=== PATIENT | female | born 1970 | race Caucasian/White ===

== ENCOUNTER → 2017-06-13 | Outpatient (CLI) | payer SELFPAY ==
[~2017-06-13] MED LIST: NS 100 ML IV 100 ML IV ONE
--- NOTE | 2017-06-13 13:21 | CT ---
HISTORY: Bilateral flank pain for months Study: CT abdomen and pelvis with contrast Comparison: None Technique: Multiple axial images of the abdomen and pelvis were obtained from the lung bases to the pubic symphy sis after/ without/ both prior to and after the administration of IV contrast. Findings: Minimal atelectasis and/or scarring are seen within the visualized lungs. The liver is enlarged. Diff use decreased attenuation throughout the liver suggests fatty infiltration. Correlate clinically as o ther causes of hepatic disease may produce a similar appearance. The spleen, pancreas, adrenals, and left kidney are unremarkable in appearance. A mildly dilated right extrarenal pelvis is noted. Stool and gas are seen throughout the colon to the level of the rectum. The urinary bladder is unremarkable . By history the appendix and uterus have been surgically removed Degenerative changes of the visuali zed spine are noted. IMPRESSION: Hepatomegaly. Hepatic steatosis. Appendectomy. Hysterectomy. Other findings as noted above. Reported By:
== END | disposition home or self-care (01) | DRG 695 ==
LOC: RAD 09:40
PROVIDERS: ATTEND Internal Medicine
DX: R31.9 Hematuria, unspecified (principal); K83.1 Obstruction of bile duct; R16.0 Hepatomegaly, not elsewhere classified
CPT/HCPCS: 74177; A4222

== ENCOUNTER → 2017-06-28 | Outpatient (CLI) | payer SELFPAY ==
--- NOTE | 2017-06-28 13:24 | RAD ---
History: Right hand pain Study: Three views of the right hand including PA oblique and lateral projections Comparison: None Findings: There is no acute fracture or dislocation. There is mild deformity of the distal 5th metaca rpal suggesting old healed fracture. No significant osteophyte formation is demonstrated. There is no marginal erosion. Impression: No acute disease Reported By:
--- NOTE | 2017-06-28 14:01 | RAD ---
HISTORY: Back pain Study: Three views of the lumbar spine Comparison: None Findings: Images demonstrate 5 [id number] lumbar vertebral bodies. The lumbar vertebral body heights are r elatively maintained. No evidence of significant subluxation is identified. Degenerate facet changes are seen within the mid to lower lumbar spine. Intervertebral disc space narrowing is noted at L4/L5. Minimal multilevel osteophytosis is also noted. IMPRESSION: 1. Degenerative changes as noted above. Reported By:
== END | disposition home or self-care (01) | DRG 556 ==
LOC: RAD 11:10
PROVIDERS: ATTEND Internal Medicine
DX: M79.641 Pain in right hand (principal); M51.36 Other intervertebral disc degeneration, lumbar region
CPT/HCPCS: 72100; 73130

== ENCOUNTER 2017-07-04 09:46 | Emergency (ER) | payer SELFPAY ==
[2017-07-04 09:53] VITALS: BP 140/91; BMI 35.4
[2017-07-04] MEDS ORDERED: TORADOL 60 MG VIAL IM ONE (10:08)
--- NOTE | 2017-07-04 10:08 | DR.FBACK ---
HPI - Time Seen Time seen: 10:00 - PCP Primary Care Physician: heena - Complaint Chief Complaint Doctor Comments: Patient presents with complaint of low back pain that increased in severity on last night s/p work clearing off shelving. She was diagnosed with DJD of the lumbar spine on . Patient reports that toradol and tramadol gave her some relief. 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 the stated last time she took toradol and tramadol and it finialy got better - Source History Provided: Patient - Mode of Arrival Mode of Arrival: Wheelchair - Timing Onset of Chief Complaint: 07/03/17 PMH - PMH Past Medical History: Yes Past Medical History: Arthritis, Dyslipidemia Past Surgical History: Yes Surgical History: Appendectomy, Hysterectomy, Ortho Surgery - Family History History of Family Medical Conditions: No - Social History Type of Tobacco Use: Smokeless How many years tobacco product used: 20 Does any household member use tobacco: Yes Alcohol Use: None Do you use any recreational Drugs:: Yes (thc) Lives With: Family Lives Where: Home - infectious screening In the last 2 months have you had wt loss of >10#?: NO Have you had fever, night sweats or hemotysis?: No Have you traveled outside the country in the last 6 months?: No Isolation: Standard ROS - Review of Systems Eyes: No Symptoms Reported ENTM: No Symptoms Reported Respiratoy: No Symptoms Reported Cardiovascular: No Symptoms Reported Gastrointestinal/Abdominal: No Symptoms Reported Genitourinary: No Symptoms Reported Neurological: No Symptoms Reported Musculoskeletal: No Symptoms Reported Integumentary: No Symptoms Reported Hematologic/Lymphatic: No Symptoms Reported Endocrine: No Symptoms Reported Psychiatric: No Symptoms Reported All Other Systems: Reviewed and Negative PE - Vitals Vital Signs: Temp Pulse Resp BP Pulse Ox 07/04/17 09:48 96.2 F L 84 18 140/91 98 - General Limitations: Language Barrier General Appearance: In No Apparent Distress - Head Head Exam: Normal Inspection, Atraumatic - Eyes Eye exam: Normal Appearance, PERRL, EOMI - ENT ENT Exam: Normal Exam - Chest Chest Inspection: Normal Inspection, Symmetric Chest Wall Rise - Respiratory Respiratory Exam: Normal Lung Sounds Bilat Respiratory Exam: Bilateral Clear to Auscultation - Cardiovascular Cardiovascular Exam: Regular Rate, Normal Rhythm - Abdominal Exam Abdominal Exam: Normal Inspection Abdominal Tenderness: negative: RUQ, RLQ, LUQ, LLQ, Epigastrium, Suprapubic, Diffuse, Mild, Moderate, Severe, Other - Genitourinary External Exam: Female: Deferred : Speculum Exam (Female): Deferred : Bimanual Exam (female): Deferred - Extremities Extremities Exam: Normal Inspection, Full ROM - Back Back Exam: Normal Inspection, Tenderness (level of T5-6/S1) - Neurological Neurological Exam: Alert, Oriented X3, CN II-XII Intact - Psychiatric Psychiatric Exam: Normal Affect - Skin Skin Exam: Warm, Dry - Diagnosis Discharge Problem: Osteoarthritis of lumbar spine Qualifiers: Spinal osteoarthritis complication: without myelopathy or radiculopathy Qualified Code(s): M47.816 - Spondylosis without myelopathy or radiculopathy, lumbar region - Discharge Plan Condition: Stable - Follow ups/Referrals Follow ups/Referrals: ZAHIDA MOSELEY [Primary Care Provider] - 3 days - Instructions
[2017-07-04] MEDS ORDERED: TORADOL 60 MG VIAL ONE (10:11)
== END 2017-07-04 10:35 | disposition home or self-care (01) ==
LOC: ER 09:54
DX: M47.816 Spondylosis without myelopathy or radiculopathy, lumbar region (principal)
CPT/HCPCS: 96372; 99282; J1885

== ENCOUNTER 2017-12-31 12:48 | Observation (INO) ==
[2017-12-31] MEDS ORDERED: LEVAQUIN PREMIX IV 750 MG 750 MG/150 ML BAG IV ONE (13:02)
[2017-12-31] MEDS ORDERED: NS 1000 ML 1,000 ML ONE (13:49)
[2017-12-31] MEDS: NS 1000 ML 1,000 ML IV SCH (14:03)
[2017-12-31] MEDS: DEMEROL INJ IVP PRN ×2 (14:41→21:10)
[2017-12-31 15:03] LABS: ALANINE AMINOTRANSFERASE 25 Units/L (12-78); ALBUMIN 3.8 g/dL (3.4-5.0); ALKALINE PHOSPHATASE 76 Units/L (46-116); ASPARTATE AMINO TRANSFERASE 14 Units/L (15-37); BLOOD UREA NITROGEN 7 mg/dL (7-18); CALCIUM 8.3 mg/dL (8.5-10.1); CARBON DIOXIDE 31.7 mmol/L (21-32); CHLORIDE 105 mmol/L (98-107); CREATININE 0.74 mg/dL (0.55-1.02); SODIUM 144 mmol/L (136-145); TOTAL PROTEIN 7.4 g/dL (6.4-8.2); eGFR NON BLACK RACES > 60 (>60)
[2017-12-31] MEDS: SOLU-Medrol 125 MG VIAL IVP SCH ×2 (15:06→21:09)
[2017-12-31 15:08] LABS: BASOPHILS % (AUTO) 0.4 % (0.2-1.0); EOSINOPHILS # (AUTO) 0.1 x10^3/uL (0.0-0.2); EOSINOPHILS % (AUTO) 1.5 % (0.9-2.9); LYMPHOCYTES % (AUTO) 33.7 % (21.0-51.0); MEAN CORPUSCULAR HEMOGLOBIN 29.7 pg (27.0-34.0); MEAN CORPUSCULAR HGB CONC 34.2 g/dL (33.0-35.0); MEAN CORPUSCULAR VOLUME 86.8 fL (80.0-100.0); MEAN PLATELET VOLUME 8.7 fL (7.4-11.0); MONOCYTES # (AUTO) 0.4 x10^3/uL (0.3-0.8); MONOCYTES % (AUTO) 4.8 % (0.0-13.0); NEUTROPHILS # (AUTO) 5.2 x10^3/uL (2.2-4.8); NEUTROPHILS % (AUTO) 59.6 % (42.0-75.0); PLATELET COUNT 215 X10^3/uL (150.0-450.0); RED BLOOD COUNT 5.06 X10^6/uL (3.5-5.4); RED CELL DISTRIBUTION WIDTH 14.3 % (11.6-16.5); WHITE BLOOD COUNT 8.8 X10^3/uL (3.6-10.0)
--- NOTE | 2017-12-31 15:58 | RAD ---
Exam: Chest two views History: 47-year-old female with history of right buttock abscess Comparison: Previous chest radiograph from 10/03/2017 Findings: Heart size and pulmonary vasculature are normal. Lungs are clear with no infiltrate or significant effusion on either side. Bony thorax is unremarkable as well. Impression: No acute cardiopulmonary abnormality is seen on this exam. Reported By:
[2017-12-31 16:46] VITALS: BMI 38.2
--- NOTE | 2017-12-31 17:15 | DR.H&P ---
H&P - History & Physical for Day of: H&P Date: 12/31/17 - Chief Complaint Chief Complaint: COUGH, BRONCHITIS, RIGHT HIP PAIN, "KNOT" TO RIGHT HIP - History of Present Illness History of Present Illness: 47 WF DIRECT ADMIT FROM DR MCWILLIAMS OFFICE AFTER PRESENTING FOR FOLLOW UP ON BRONCHITIS, PT RECIVED ROCEPHIN 1GM IM ONE WEEK AGO AND HAS CO CONTINUES TO FEEL BAD, COUGH AND CONGESTION, PT CO INTRACTABLE RIGHT HIP PAIN RADIATES DOWN RIGHT LEG AND "KNOT" WHERE SHE HAD ROCEPHIN INJECTION. PT HAS PMH OF LSPINE DDD AND STATES PAIN IN LOWER BACK AND HIP HAS BEEN WORSE WHILE WORKING. PT DENIES FEVER, REDNESS OR DRAINING FROM INJECTION SITE. PT IS ON WALKER, STATES SHE CANNOT BEAR WEIGHT DUE TO PAIN - Past Medical History Past Medical History: Hypertension, Dyslipidemia, Arthritis - Past Surgical History Surgical History: Appendectomy, Cholecystectomy, Hysterectomy, Ortho Surgery - Family History Family Medical History: Diabetes Mellitus, Cancer, [place], Coronary Artery Disease, Hypertension - Social History Does patient currently use any type of tobacco product: Yes Have you used tobacco products in the last 12 months: Yes Type of Tobacco Use: Cigarettes Does any household member use tobacco: Yes () Alcohol Use: None Drug Use: Marijuana - Medications Home Medications: acetaminophen [From Percocet] Allergy (Verified 12/29/17 10:23) codeine Allergy (Verified 12/29/17 10:23) morphine Allergy (Verified 12/29/17 10:23) nalbuphine [From Nubain] Allergy (Verified 12/29/17 10:23) oxycodone [From Percocet] Allergy (Verified 12/29/17 10:23) Penicillins Allergy (Verified 12/29/17 10:23) CONTINUE taking the following medications lisinopril 5 mg PO QDAY 12/31/17 [History] - Review of Systems Constitutional: Weakness Eyes: No Symptoms Reported ENT: No Symptoms Reported Respiratory: Cough Cardiovascular: No Symptoms Reported Gastrointestinal: Nausea Genitourinary: No Symptoms Reported Musculoskeletal: Back Pain, Leg Pain, Other (RIGHT BUTTOCK PAIN AND RIGHT HIP PAIN) Skin: Other ("KNOT" TO RIGHT GM) Neurological: No Symptoms Reported - Physical Exam Vital Signs: Temperature 97.4 F Pulse Rate [Left Brachial] 50 Pulse Rate 49 Respiratory Rate 18 Blood Pressure [Left Arm] 136/66 Blood Pressure [Right Arm] 121/62 Blood Pressure 121/62 O2 Sat by Pulse Oximetry 98 Oriented: Normal Eyes: Normal Ear: Normal Nose: Normal Throat: Normal Respiratory: Rhonchi Throughout (MILD CENTRAL RHONCHI), RLL Diminished, LLL Diminished Cardiovascular: Bradycardia (HEART RATE 48) : Normal Auscultation: Bowel Sounds: Normal Palpation: Normal Tenderness: Normal Skin: Tender, Other (SOFT TISSUE MASS 2CM X 2CM RIGHT GM, NO REDNESS, INCREASED WARMTH OR D/C) Musculoskeletal: Back:Lumbar, Tender, Motor Deficit Psychiatric: Anxiety Affect: Anxious Speech Pattern: Clear, Appropriate - Assessment/Plan (1) Acute bronchitis Status: Acute Plan: ADMIT, RESP CONSULT. BLOOD AND SPUTUM CULTURE, IV LEVAQUIN. SOLU MEDROL AND JET NEBS. PAIN CONTROL, EKG AND CXR ON ADMISSION. SOFT TISSUE US OF RIGHT BUTTOCK MASS, R/O ABSCESS (2) Intractable neuropathic pain of lumbosacral origin Status: Acute (3) Paresthesia of lower extremity Status: Acute (4) Pain in right buttock Status: Acute - Allergies Allergies/Adverse Reactions: Allergies Allergy/AdvReac Type Severity Reaction Status Date / Time acetaminophen [From Percocet] Allergy Verified 12/29/17 10:23 codeine Allergy Verified 12/29/17 10:23 morphine Allergy Verified 12/29/17 10:23 nalbuphine [From Nubain] Allergy Verified 12/29/17 10:23 oxycodone [From Percocet] Allergy Verified 12/29/17 10:23 Penicillins Allergy Verified 12/29/17 10:23
[2017-12-31] MEDS ORDERED: ZOFRAN INJ 4 MG VIAL IVP PRN (17:22)
[2017-12-31] MEDS ORDERED: ZOFRAN INJ 4 MG VIAL ONE (17:28)
[2017-12-31] MEDS ORDERED: K-RIDER 10 MEQ/NS 100 ML 10 MEQ/100 ML BAG IV PRN (18:36)
[2017-12-31] MEDS ORDERED: K-DUR TAB 20 MEQ PO PRN (18:36)
[2017-12-31] MEDS ORDERED: KLOR-CON PO PRN (18:36)
[2017-12-31] MEDS ORDERED: MICRO K EXTEN CAP 10 MEQ PO PRN (18:36)
[2017-12-31] MEDS ORDERED: POTASSIUM CHLORIDE LIQ 20 MEQ UDC PO PRN (18:36)
[2017-12-31] MEDS ORDERED: POTASSIUM CHL 40 MEQ/NS 0.45% 500 ML IV PRN (18:36)
[2017-12-31] MEDS ORDERED: POTASSIUM CHL 60 MEQ/NS 0.45% 500 ML IV PRN (18:36)
[2017-12-31] MEDS: ULTRAM PO PRN (19:16)
[2017-12-31 23:41] LABS: BILIRUBIN,URINE NEGATIVE (NEGATIVE); BLOOD/HEMOGLOBIN,URINE 2+ (NEGATIVE); GLUCOSE, URINE NEGATIVE (NEGATIVE); KETONES,URINE NEGATIVE (NEGATIVE); LEUKOCYTE ESTERASE ,URINE NEGATIVE (NEGATIVE); NITRITES,URINE NEGATIVE (NEGATIVE); PROTEIN,URINE NEGATIVE (NEGATIVE); UROBILINOGEN,URINE NORMAL (NORMAL)
[2017-12-31 23:51] LABS: APPEARANCE,URINE CLEAR (CLEAR); BACTERIA,URINE TRACE /HPF (NEGATIVE); COLOR,URINE YELLOW (YELLOW); SQUAMOUS EPITHELIAL CELL,UR RARE /HPF (NEGATIVE)
[2018-01-01] MEDS: NS 1000 ML 1,000 ML IV SCH ×3 (00:59→17:16)
[2018-01-01] MEDS: DEMEROL INJ IVP PRN (04:40)
[2018-01-01] MEDS: SOLU-Medrol 125 MG VIAL IVP SCH ×3 (05:15→20:59)
[2018-01-01 05:18] LABS: BASOPHILS % (AUTO) 0.3 % (0.2-1.0); EOSINOPHILS % (AUTO) 0.1 % (0.9-2.9); HEMATOCRIT 41.3 % (36.0-47.0); HEMOGLOBIN 14.1 g/dL (12.0-16.0); LYMPHOCYTES # (AUTO) 1.1 X10^3/uL (1.3-2.9); LYMPHOCYTES % (AUTO) 13.3 % (21.0-51.0); MEAN CORPUSCULAR HEMOGLOBIN 29.5 pg (27.0-34.0); MEAN CORPUSCULAR HGB CONC 34.3 g/dL (33.0-35.0); MEAN PLATELET VOLUME 8.5 fL (7.4-11.0); MONOCYTES # (AUTO) 0.1 x10^3/uL (0.3-0.8); NEUTROPHILS # (AUTO) 7.3 x10^3/uL (2.2-4.8); NEUTROPHILS % (AUTO) 85.3 % (42.0-75.0); PLATELET COUNT 219 X10^3/uL (150.0-450.0); RED CELL DISTRIBUTION WIDTH 14.2 % (11.6-16.5); WHITE BLOOD COUNT 8.5 X10^3/uL (3.6-10.0)
[2018-01-01 05:30] LABS: ALANINE AMINOTRANSFERASE 24 Units/L (12-78); ALBUMIN 3.4 g/dL (3.4-5.0); ALKALINE PHOSPHATASE 73 Units/L (46-116); ASPARTATE AMINO TRANSFERASE 14 Units/L (15-37); BLOOD UREA NITROGEN 4 mg/dL (7-18); CALCIUM 8.4 mg/dL (8.5-10.1); CARBON DIOXIDE 26.3 mmol/L (21-32); CHLORIDE 105 mmol/L (98-107); COR NA(FOR HYPERGLY) 144 mmol/L (136-145); CREATININE 0.84 mg/dL (0.55-1.02); SODIUM 143 mmol/L (136-145); TOTAL PROTEIN 6.9 g/dL (6.4-8.2); eGFR NON BLACK RACES > 60 (>60)
--- NOTE | 2018-01-01 06:03 | US ---
HISTORY: Patient complains of palpable mass in the right buttock region. Due to injection 2 days ago. Suspected abscess. Study: Ultrasound of the right buttock Comparison: No prior Technique: Grayscale and color Doppler evaluation of the right buttock region is provided. Findings: No cystic or solid mass is seen. There is no evidence of unusual fluid collection. Normal fatty and muscular tissues are displayed. Color Doppler studies are normal. IMPRESSION: Unremarkable ultrasound of the right buttock. Reported By:
[2018-01-01] MEDS ORDERED: BENADRYL INJ 50 MG VIAL IVP ONE (09:24)
[2018-01-01] MEDS: ZESTRIL TAB 5 MG PO SCH (10:45)
[2018-01-01] MEDS: DILAUDID INJ IVP PRN ×2 (10:45→17:05)
--- NOTE | 2018-01-01 12:49 | PCM.PROG ---
Progress Note - Progress Note for Day of Date of Exam: 01/01/18 - Subjective Subjective: 47 wf direct admit on 12/31 with failed outpt bronchitis and co intractable rigth buttock pain radiating down right lower leg. pt hs of l spine ddd, however pt related pain to IM rocephin injection she recieved one week ago. pt had us of soft tissue negative for abscess formation. pt co sever right hip and right lower leg pain with swelling to rle. pt states she cannot bear weight. pt had recived IV demerol without improvement. Plan to continue resp therapy, iv solu medrol, resume home medication, lumbar spine series and us rle r/o dvt - Past Medical Family Social History Past Med/Fam/Surg Hx: No changes since H&P Allergies: Allergies acetaminophen [From Percocet] Allergy (Verified 12/29/17 10:23) codeine Allergy (Verified 12/29/17 10:23) morphine Allergy (Verified 12/29/17 10:23) MAKES PT. NAUSEATED. nalbuphine [From Nubain] Allergy (Verified 12/29/17 10:23) oxycodone [From Percocet] Allergy (Verified 12/29/17 10:23) Penicillins Allergy (Verified 12/29/17 10:23) - Review of Systems ROS: No change since H&P - Vital Signs and I&O's Vital Signs: Temperature 98.3 F Pulse Rate [Left Brachial] 56 Pulse Rate 49 Respiratory Rate 18 Blood Pressure [Left Arm] 189/84 Blood Pressure [Right Arm] 121/62 Blood Pressure 121/62 O2 Sat by Pulse Oximetry 98 Intake and Output: Intake & Output 12/30/17 12/31/17 01/01/18 01/02/18 11:59 11:59 11:59 11:59 Intake Total 6724 / 2474 Balance 1274 / 2474 - Physical Exam Oriented: Normal Eyes: Normal Ear: Normal Nose: Normal Throat: Normal Respiratory: Diminished, Wheezes (mild upper exp wheezes) Cardiovascular: Bradycardia (HEART RATE 48) : Normal Auscultation: Bowel Sounds: Normal Tenderness: Normal Skin: Tender, Other (SOFT TISSUE MASS 2CM X 2CM RIGHT GM, NO REDNESS, INCREASED WARMTH OR D/C) Musculoskeletal: Back:Lumbar, Tender, Motor Deficit Psychiatric: Anxiety Affect: Anxious Speech Pattern: Clear, Appropriate - Laboratory and Diagnostics Result Diagrams: 01/01/18 04:47 01/01/18 04:47 Labs: Laboratory WBC 8.5 X10^3/uL (3.6-10.0) 01/01/18 04:47 RBC 4.80 X10^6/uL (3.5-5.4) 01/01/18 04:47 Hgb 14.1 g/dL (12.0-16.0) 01/01/18 04:47 Hct 41.3 % (36.0-47.0) 01/01/18 04:47 MCV 86.0 fL (80.0-100.0) 01/01/18 04:47 MCH 29.5 pg (27.0-34.0) 01/01/18 04:47 MCHC 34.3 g/dL (33.0-35.0) 01/01/18 04:47 RDW 14.2 % (11.6-16.5) 01/01/18 04:47 Plt Count 219 X10^3/uL (150.0-450.0) 01/01/18 04:47 MPV 8.5 fL (7.4-11.0) 01/01/18 04:47 Neut % (Auto) 85.3 % (42.0-75.0) H 01/01/18 04:47 Lymph % (Auto) 13.3 % (21.0-51.0) L 01/01/18 04:47 [place] % (Auto) 1.0 % (0.0-13.0) 01/01/18 04:47 Eos % (Auto) 0.1 % (0.9-2.9) L 01/01/18 04:47 Baso % (Auto) 0.3 % (0.2-1.0) 01/01/18 04:47 Neut # (Auto) 7.3 x10^3/uL (2.2-4.8) H 01/01/18 04:47 Lymph # (Auto) 1.1 X10^3/uL (1.3-2.9) L 01/01/18 04:47 [place] # (Auto) 0.1 x10^3/uL (0.3-0.8) L 01/01/18 04:47 Eos # (Auto) 0.0 x10^3/uL (0.0-0.2) 01/01/18 04:47 Baso # (Auto) 0.0 X10^3/uL (0.0-0.1) 01/01/18 04:47 Absolute Nucleated RBC 0.1 /100WBC 01/01/18 04:47 Sodium 143 mmol/L (136-145) 01/01/18 04:47 Corrected Sodium 144 mmol/L (136-145) 01/01/18 04:47 Potassium 4.0 mmol/L (3.5-5.1) 01/01/18 04:47 Chloride 105 mmol/L (98-107) 01/01/18 04:47 Carbon Dioxide 26.3 mmol/L (21-32) 01/01/18 04:47 BUN 4 mg/dL (7-18) L 01/01/18 04:47 Creatinine 0.84 mg/dL (0.55-1.02) 01/01/18 04:47 Est GFR (MDRD) Af Amer > 60 (>60) 01/01/18 04:47 Est GFR (MDRD) Non-Af > 60 (>60) 01/01/18 04:47 Glucose 139 mg/dL (65-99) H 01/01/18 04:47 Calcium 8.4 mg/dL (8.5-10.1) L 01/01/18 04:47 Corrected Calcium TNP 01/01/18 04:47 Magnesium 1.9 mg/dL (1.7-2.9) 12/31/17 14:15 Total Bilirubin 0.20 mg/dL (0.2-1.0) 01/01/18 04:47 AST 14 Units/L (15-37) L 01/01/18 04:47 ALT 24 Units/L (12-78) 01/01/18 04:47 Alkaline Phosphatase 73 Units/L (46-116) 01/01/18 04:47 Total Protein 6.9 g/dL (6.4-8.2) 01/01/18 04:47 Albumin 3.4 g/dL (3.4-5.0) 01/01/18 04:47 Globulin 3.5 g/dL (2.5-4.5) 01/01/18 04:47 Albumin/Globulin Ratio 1.0 Ratio (1.1-2.1) L 01/01/18 04:47 Specimen Type Clean catch urine 12/31/17 23:34 Urine Color Yellow (YELLOW) 12/31/17 23:34 Urine Appearance Clear (CLEAR) 12/31/17 23:34 Urine pH 7.0 (5.0 - 8.0) 12/31/17 23:34 Ur Specific [place] 1.010 (1.000-1.030) 12/31/17 23:34 Urine Protein Negative (NEGATIVE) 12/31/17 23:34 Urine Glucose (UA) Negative (NEGATIVE) 12/31/17 23:34 Urine Ketones Negative (NEGATIVE) 12/31/17 23:34 Urine Occult Blood 2+ (NEGATIVE) 12/31/17 23:34 Urine Nitrite Negative (NEGATIVE) 12/31/17 23:34 Urine Bilirubin Negative (NEGATIVE) 12/31/17 23:34 Urine Urobilinogen Normal (NORMAL) 12/31/17 23:34 Ur Leukocyte Esterase Negative (NEGATIVE) 12/31/17 23:34 Urine RBC 3-5 /HPF (NONE SEEN) 12/31/17 23:34 Urine WBC None seen /HPF (NONE SEEN) 12/31/17 23:34 Ur Squamous Epith Cells Rare /HPF (NEGATIVE) 12/31/17 23:34 Urine Bacteria Trace /HPF (NEGATIVE) 12/31/17 23:34 Ur Culture Indicated? No/not indicated 12/31/17 23:34 - Plan (1) Acute bronchitis Status: Acute Plan: CONTINUE RESP THERAPY. BLOOD AND SPUTUM CULTURE ORDERD ON ADMISSION, IV LEVAQUIN. SOLU MEDROL AND JET NEBS. PAIN CONTROL, EKG AND CXR ON ADMISSION. SOFT TISSUE US OF RIGHT BUTTOCK MASS NEGATIVE FOR ABSCESS (2) Intractable neuropathic pain of lumbosacral origin Status: Acute Plan: L SPINE SERIES. PAIN CONTROL, MUSCLE RELAXER. IV STEROIDS (3) Paresthesia of lower extremity Status: Acute (4) Pain in right buttock Status: Acute (5) Unilateral edema of lower extremity Status: Acute
[2018-01-01] MEDS: NEURONTIN CAP 300 MG PO SCH ×3 (13:58→20:59)
[2018-01-01] MEDS: ZANAFLEX PO SCH ×2 (13:58→21:01)
[2018-01-01] MEDS: ULTRAM PO PRN ×2 (13:59→21:00)
--- NOTE | 2018-01-01 14:16 | VAS ---
HISTORY: Extremity pain, swelling, and edema Study: Bilateral lower extremity Doppler venous ultrasound. TECHNIQUE: Multiple krause scale and color flow Doppler images of the deep venous system were obtained of the right and left lower extremity. FINDINGS: The deep venous system of the right and left lower extremities were evaluated from the level of the common femoral veins through the popliteal veins, bilaterally. Normal color flow and augmentation can be observed. In addition, normal compression is seen throughout the deep venous system. No Cao's cyst is seen. IMPRESSION: 1. Negative examination for DVT. Reported By:
--- NOTE | 2018-01-01 15:00 | RAD ---
HISTORY: Intractable low back pain Study: Lumbar sacral spine series Comparison: Lumbar sacral spine series 07/11/2017 and 06/28/2017 Technique: AP both obliques lateral and cone-down views L5-S1 are obtained. Findings: Alignment is normal with normal lordotic curve. Vertebral body heights are normal. There is mild disc space narrowing at L4-5. There are no fractures lytic or osteoblastic bone lesions. There are no pars defects or subluxation. The SI joints are normal. IMPRESSION: 1. Degenerative disc disease mild to moderate at L4-5. 2. The remainder the lumbar spine series is normal. 3. Status post cholecystectomy. Reported By:
[2018-01-01] MEDS: ZANTAC PO SCH (20:59)
[2018-01-01] MEDS ORDERED: REMERON PO SCH (21:00)
[2018-01-01] MEDS ORDERED: ZOCOR TAB 40 MG PO SCH (21:00)
[2018-01-01] MEDS ORDERED: ZyPREXA TAB 5 MG PO SCH (21:00)
[2018-01-02] MEDS: DILAUDID INJ IVP PRN ×3 (00:08→14:04)
[2018-01-02 05:16] LABS: BASOPHILS % (AUTO) 0.3 % (0.2-1.0); HEMATOCRIT 39.5 % (36.0-47.0); HEMOGLOBIN 13.1 g/dL (12.0-16.0); LYMPHOCYTES # (AUTO) 1.5 X10^3/uL (1.3-2.9); LYMPHOCYTES % (AUTO) 11.4 % (21.0-51.0); MEAN CORPUSCULAR HEMOGLOBIN 29.2 pg (27.0-34.0); MEAN CORPUSCULAR HGB CONC 33.3 g/dL (33.0-35.0); MEAN CORPUSCULAR VOLUME 87.7 fL (80.0-100.0); MEAN PLATELET VOLUME 8.6 fL (7.4-11.0); MONOCYTES # (AUTO) 0.3 x10^3/uL (0.3-0.8); MONOCYTES % (AUTO) 2.1 % (0.0-13.0); NEUTROPHILS # (AUTO) 11.2 x10^3/uL (2.2-4.8); NEUTROPHILS % (AUTO) 86.2 % (42.0-75.0); PLATELET COUNT 216 X10^3/uL (150.0-450.0); RED CELL DISTRIBUTION WIDTH 14.6 % (11.6-16.5); WHITE BLOOD COUNT 12.9 X10^3/uL (3.6-10.0)
[2018-01-02] MEDS: ULTRAM PO PRN ×2 (05:28→11:30)
[2018-01-02] MEDS: ZANAFLEX PO SCH ×2 (05:28→14:08)
[2018-01-02 05:29] LABS: ALANINE AMINOTRANSFERASE 25 Units/L (12-78); ALBUMIN 3.1 g/dL (3.4-5.0); ALKALINE PHOSPHATASE 62 Units/L (46-116); ASPARTATE AMINO TRANSFERASE 16 Units/L (15-37); BLOOD UREA NITROGEN 6 mg/dL (7-18); CALCIUM 8.3 mg/dL (8.5-10.1); CARBON DIOXIDE 29.7 mmol/L (21-32); CHLORIDE 107 mmol/L (98-107); COR NA(FOR HYPERGLY) 146 mmol/L (136-145); CREATININE 0.69 mg/dL (0.55-1.02); SODIUM 145 mmol/L (136-145); TOTAL PROTEIN 6.5 g/dL (6.4-8.2); eGFR NON BLACK RACES > 60 (>60)
[2018-01-02] MEDS: SOLU-Medrol 125 MG VIAL IVP SCH ×2 (05:29→14:08)
[2018-01-02] MEDS: NS 1000 ML 1,000 ML IV SCH ×2 (05:29→06:27)
[2018-01-02] MEDS ORDERED: ZOLOFT PO ONE (07:59)
[2018-01-02] MEDS: ZANTAC PO SCH (08:05)
[2018-01-02] MEDS: NEURONTIN CAP 300 MG PO SCH ×2 (08:05→14:08)
[2018-01-02] MEDS: ZESTRIL TAB 5 MG PO SCH (08:06)
[2018-01-02] MEDS ORDERED: ZOLOFT PO SCH (09:00)
[2018-01-02] MEDS ORDERED: PriLOSEC PO SCH (09:00)
[2018-01-02 12:23] VITALS: BP 165/85
--- NOTE | 2018-01-02 13:06 | MRI ---
STUDY: MRI OF THE LUMBAR SPINE HISTORY: Lumbar spine DDD. Intractable pain. Right leg weakness. Comparison: Lumbar spine radiographs from January 01, 2018. MRI lumbar spine from July 11, 2017. Technique: Multiplanar multi-sequence MRI of the lumbar spine was performed. Sagittal T1, sagittal T2, and STIR images, axial T1, and axial T2 images were obtained. Findings: Sagittal images: Vertebral body heights and alignment are within normal limits. Marrow signal is heterogeneous. There is degenerative endplate change identified, with chronic degenerative change most severe at L4/5. There is degenerative disc disease at L4/5. Remaining intervertebral discs appear fairly well preserved. The conus medullaris is normal in appearance terminating at the level of T12. Axial images: T12 -- L1: Normal. L1 -- L2: Normal. L2 -- L3: There is bilateral facet arthropathy and ligamentum flavum infolding. The central canal and neural foramina are adequate. L3 -- L4: There is bilateral facet arthropathy and ligamentum flavum infolding. The central canal and neural foramina are adequate. L4 -- L5: There is a broad-based disc bulge, bilateral facet arthropathy and ligamentum flavum infolding. This results in mild central canal and right neural foraminal stenosis. The left neural foramen is adequate. L5 -- S1: There is a broad-based disc bulge bilateral facet arthropathy. The central canal and neural foramina are adequate. IMPRESSION: 1. Multilevel lumbar spondylosis, most notable at L4/5. 2. Mild spinal stenosis at L4/5. 3. Mild right neural foraminal stenosis at L4/5. Reported By:
== END 2018-01-02 14:55 | disposition home or self-care (01) ==
LOC: MED/SURG
PROVIDERS: ADMIT Internal Medicine; ATTEND Internal Medicine
DX: E87.6 Hypokalemia; I10 Essential (primary) hypertension; M79.89 Other specified soft tissue disorders; R00.1 Bradycardia, unspecified; R10.84 Generalized abdominal pain; M48.061 Spinal stenosis, lumbar region without neurogenic claudication; M54.89 Other dorsalgia; M25.551 Pain in right hip; R26.89 Other abnormalities of gait and mobility; M79.604 Pain in right leg; M51.16 Intervertebral disc disorders with radiculopathy, lumbar region; R20.2 Paresthesia of skin; J20.8 Acute bronchitis due to other specified organisms; R60.0 Localized edema; E78.2 Mixed hyperlipidemia; M47.27 Other spondylosis with radiculopathy, lumbosacral region
CPT/HCPCS: 36415; 71020; 71046; 72110; 72148; 76705; 80053; 81001; 83735; 85025; 87040; 93005; 93010; 93970; 96367; 96374; 97162; 97530; A4222; G0378; J1170; J1200; J1956; J2175; J2405; J2930; J7030